=== PATIENT | male | born 1965 | race Native Hawaiian/Other Pacific Islander ===

== ENCOUNTER 2017-04-19 18:53 | Emergency (ER) | payer OTHER ==
[~2017-04-19] VITALS: Ht 185.4 cm; Wt 92.5 kg
== END 2017-04-19 19:49 | disposition home or self-care (01) ==
LOC: ED 18:53
DX: R68.84 Jaw pain (principal); K02.9 Dental caries, unspecified; K04.7 Periapical abscess without sinus
CPT/HCPCS: 96372; 99283; J0696; J1885

== ENCOUNTER 2021-05-31 18:30 | Emergency (ER) | payer OTHER ==
[~2021-05-31] VITALS: Ht 185.4 cm; Wt 11.3 kg
[2021-05-31 19:28] LABS: PLATELET COUNT 122 K/uL (142-355)
[2021-05-31 19:35] LABS: POTASSIUM 4.5 mmol/L (3.6-5.2); SODIUM 137 mmol/L (136-145)
[2021-05-31 19:42] LABS: PARTIAL THROMBOPLASTIN TIME 25.1 SECONDS (24.5-33.6)
[2021-05-31 22:30] VITALS: BP 129/66; TEMP 98.6
== END 2021-05-31 22:30 | disposition home or self-care (01) ==
LOC: ED 18:30
PROVIDERS: Family Medicine
DX: U07.1 COVID-19 (principal); R51.9 Headache, unspecified; K57.90 Diverticulosis of intestine, part unspecified, without perforation or abscess without bleeding
CPT/HCPCS: 80053; 82550; 84484; 85027; 85610; 85730; 87635; 93005; 96372; 99283; J1885; U0003

== ENCOUNTER 2021-06-19 13:56 | Emergency (ER) | payer OTHER ==
[~2021-06-19] VITALS: Ht 185.4 cm; Wt 115.7 kg
[2021-06-19 14:44] VITALS: BP 122/80; TEMP 98.4
[2021-06-19 15:20] LABS: PLATELET COUNT 222 K/uL (142-355)
[2021-06-19 15:23] LABS: POTASSIUM 4.3 mmol/L (3.6-5.2)
== END 2021-06-19 16:22 | disposition home or self-care (01) ==
LOC: ED 13:56
PROVIDERS: Hospitalist
DX: U07.1 COVID-19 (principal); J12.82 Pneumonia due to coronavirus disease 2019; F17.210 Nicotine dependence, cigarettes, uncomplicated
CPT/HCPCS: 80048; 85027; 85379; 96372; 99283; J1100

== ENCOUNTER 2022-08-11 14:44 | Emergency (ER) | payer OTHER ==
[~2022-08-11] VITALS: Ht 185.4 cm; Wt 108.9 kg
[2022-08-11 15:25] LABS: PLATELET COUNT 131 K/uL (142-355)
[2022-08-11 16:22] VITALS: BP 138/82; TEMP 98.3
== END 2022-08-11 16:25 | disposition home or self-care (01) ==
LOC: ED 14:44
PROVIDERS: Emergency Medicine
DX: I10 Essential (primary) hypertension (principal); F17.210 Nicotine dependence, cigarettes, uncomplicated
CPT/HCPCS: 36415; 80053; 82550; 84484; 85027; 85379; 93005; 99283